=== PATIENT | female | born 1985 | race African-American/Black ===

== ENCOUNTER 2020-01-30 06:09 | Inpatient (IN) | payer OTHER, SELFPAY ==
[2020-01-30] VITALS (52 sets, daily range): BP systolic 99–149; BP diastolic 37–111; PULSE 77–162; RESP 16–18; TEMP 36.9–37.1; O2SAT 99–100
[2020-01-30 07:24] LABS: Basophils Absolute Auto 0.1 K/mm3 (0.0-0.1); Basophils Percent Auto 0.4 % (0.2-1.2); Eosinophils Absolute Auto 0.1 K/mm3 (0-0.3); Eosinophils Percent Auto 0.7 % (0-4.4); Hemoglobin 9.3 g/dL (12.0-15.0); Immature Granulocyte Absolute 0.27 K/mm3 (0.00-0.031); Immature Granulocyte Percent A 1.6 % (0-0.5); Lymphocytes Absolute Auto 2.87 K/mm3 (0.9-3.2); Mean Corpuscular Hemoglobin 22.7 pg (26-34); Mean Corpuscular Volume 75.6 fl (80-100); Monocytes Absolute Auto 1.3 K/mm3 (0.1-0.6); Monocytes Percent Auto 7.6 % (2.6-8.5); Neutrophils Absolute Auto 12.3 K/mm3 (1.3-6.7); Neutrophils Percent Auto 72.7 % (45.5-73.1); Nucleated Red Blood Cells Perc 0.2 % (0.0-0.2); Platelet Count Result 296 k/mm3 (150-375); Red Cell Distribution Width 22.2 % (11.5-14.5); White Blood Count 16.9 K/mm3 (4.5-10.0)
[2020-01-30] MEDS: LACTATED RINGERS 1,000 ML 125 ML IV CONT ×2 (07:39→08:33)
[2020-01-30] MEDS: AMPICILLIN 2 GM/NS 100 ML 2 GM/100 ML BAG IVPB (07:40)
--- NOTE | 2020-01-30 07:43 | LDADM ---
This patient, Jacqui Rankin, was admitted to Labor/Delivery/Recovery 105 on 01/30/20 at 06:09. Plans for labor, pain management and were discussed with patient. Patient/family oriented to hospital policies and general routines including ID bracelet, bed and alarms, visiting hours, pain management, procedures, bathroom and other care routines, personal items, smoking policy, room service/diet and guest tray routines, security routines, and visiting hours. Patient/Family are encouraged to report perceived risks to care and to ask questions if they do not understand what they are told or what they should do. See OBIX for further documentation.
--- NOTE | 2020-01-30 08:14 | WPDANESEPP ---
Anes - Eval Pre Procedure Procedure: Labor epidural Date/Time: 01/30/20 08:14 Surgeon: Malia Preop Diagnosis: pain during labor Pre Op Diagnosis: Induction of Labor Patient Data Age: 34 Gender: F Height: Weight: Last Vital Signs Pulse 106 H 01/30/20 08:02 BP 99/86 L 01/30/20 08:02 Allergies Allergy/AdvReac Type Severity Reaction Status Date / Time No Known Allergies Allergy Verified 01/30/20 06:49 Home Medications Medication Instructions Recorded Confirmed Type -ebmn fum-folic ac-om3 1 pkg PO DAILY 01/30/20 01/30/20 History [One Daily ] Laboratory Tests 01/30/20 01/30/20 07:17 07:17 WBC 16.9 K/mm3 H K/mm3 (4.5-10.0) RBC 4.10 M/mm3 L M/mm3 (4.2-5.4) Hgb 9.3 g/dL L g/dL (12.0-15.0) Hct 31.0 % L % (37.0-47.0) MCV 75.6 fl L fl (80-100) MCH 22.7 pg L pg (26-34) MCHC 30.0 g/dl L g/dl (32-36) RDW 22.2 % H % (11.5-14.5) Plt Count 296 k/mm3 k/mm3 (150-375) MPV 11.0 fl H fl (7.4-10.4) Immature Gran % (Auto) 1.6 % H % (0-0.5) Neut % (Auto) 72.7 % % (45.5-73.1) Lymph % (Auto) 17.0 % L % (18.3-44.2) [place] % (Auto) 7.6 % % (2.6-8.5) Eos % (Auto) 0.7 % % (0-4.4) Baso % (Auto) 0.4 % % (0.2-1.2) Lymph # (Auto) 2.87 K/mm3 K/mm3 (0.9-3.2) [place] # (Auto) 1.3 K/mm3 H K/mm3 (0.1-0.6) Eos # (Auto) 0.1 K/mm3 K/mm3 (0-0.3) Baso # (Auto) 0.1 K/mm3 K/mm3 (0.0-0.1) Abs Immat Gran (auto) 0.27 K/mm3 H K/mm3 (0.00-0.031) Absolute Neuts (auto) 12.3 K/mm3 H K/mm3 (1.3-6.7) Absolute Nucleated RBC 0.0 K/mm3 K/mm3 (0.0-0.012) Nucleated RBC % 0.2 % % (0.0-0.2) RPR Pending Patient hx anesthesia problems: none Family hx anesthesia problems: none PMFSH Social History Social History Smoking status: Never smoker Substance use: never Gender identity (if verbalized by the patient): Female Spiritual care concerns: No Exam Day of Procedure 01/30/20 08:14
[2020-01-30 09:52] LABS: Rapid Plasma Reagin Non-Reactive (NonReactive)
[2020-01-30] MEDS: AMPICILLIN 1 GM/NS 50 ML 1 GM/50 ML BAG IVPB (11:25)
--- NOTE | 2020-01-30 12:16 | PM.OBPRVD ---
OB - Delivery Note Procedure Delivery date: 01/30/20 Route of delivery: Episiotomy description: None Laceration description: None Specimen: No Estimated blood loss (mL): 200 Anesthesia type: Epidural Disposition: floor Narrative: Patient prepped and draped in the usual manner for this procedure. Maternal expulsive efforts readily delivered vertex. Nuchal cord was noted reduced. Rest of baby was delivered without difficulty. Cord was clamped and cut baby was passed off the. Placenta then delivered spontaneously. Cervix and vulva inspected for lacerations or tears. Uterus was hemostatic well contracted. At this point seems was considered terminated with immediate postop condition mother and baby both excellent. Baby Weeks of gestation at delivery: 39 Infant gender: Female Weight (pounds): 6 Weight (ounces): 0 presentation: vertex Placenta delivery description: Spontaneous score one minute: 9 score five minutes: 9
[2020-01-30] MEDS: IBUPROFEN 600 MG TABLET PO (15:12)
--- NOTE | 2020-01-30 15:54 | PC.NURSE ---
Patient transferred to post room # 283 per wheelchair. Support person present. Oriented to unit, room, information board, rooming in, admission packet and security measures. Patient verbalizes understanding.
[2020-01-31] MEDS: IBUPROFEN 600 MG TABLET PO ×2 (01:56→09:18)
[2020-01-31 05:33] LABS: Hematocrit 28.4 % (37.0-47.0); Hemoglobin 8.6 g/dL (12.0-15.0)
[2020-01-31 09:00] VITALS: BP 137/82; PULSE 78; RESP 14; TEMP 36.3; O2SAT 100
[2020-01-31] MEDS: DOCUSATE SODIUM 100 MG CAPSULE PO (09:18)
[2020-01-31] MEDS: POLYSACCHARIDE IRON COMPLEX 150 MG CAPSULE PO ×2 (09:19)
--- NOTE | 2020-01-31 09:44 | PM.OBPNVD ---
OB - PN: Subj Subjective Date/time seen: 01/31/20 09:44 Interval history: 34yo s/p on 01/29. Doing well this morning. Cramping is occasional, pain medication is helping. Lochia decreasing. Ambulating without issues. Bottle feeding. Patient comments: no complaints and pain well controlled baby status: bottle feeding well OB - PN: Obj Data Labs CBC & Chem 7: 01/31/20 04:44 Labs: Laboratory Results - last 24 hr 01/30/20 01/31/20 07:17 04:44 Hgb 8.6 L Hct 28.4 L RPR Non-reactive OB - PN A/P Assessment and Plan (1) (normal spontaneous vaginal delivery): Code(s): O80 - Encounter for full-term uncomplicated delivery Status: Acute Assessment and Plan: Routine care Pain management Ambulate DC home tomorrow 01/31 (2) Anemia affecting : Code(s): O99.019 - Anemia complicating , unspecified trimester Status: Acute Assessment and Plan: Iron BID Time Spent With Patient Time: Total time spent is greater than 50% in coordination of care (as documented) at patient's floor/unit and/or counseling patient: Review of Systems Review of Systems: All systems reviewed & are unremarkable except as noted in HPI and below Exam Const: General: comfortable, no acute distress, alert and awake Orientation/consciousness: patient oriented x3 Resp: Effort & Inspection: normal respiratory effort Cardio: Rate: regular rate GI: Other: soft, nontender, nondistended, fundus firm Psych: Appearance: grossly normal Mental Status: mental status grossly normal Affect: normal affect Attitude: cooperative Judgement: Good judgement present (Psych)
--- NOTE | 2020-01-31 10:32 | WPDANLDPN2 ---
Anes-Prog Note L&D Date/Time: 01/31/20 10:32 Comfortable throughout: labor and delivery Neuraxial method: epidural Epidural/Spinal procedure site: clean & non-tender Neuro status: Neuro function grossly intact. Cardiovascular status: normal Respiratory status: normal Airway patency: baseline Mental status: baseline Post-Op hydration status: normal Vital Signs: Last Vital Signs Temp 36.9 C 01/30/20 19:00 Pulse 77 01/30/20 19:00 Resp 16 01/30/20 19:00 BP 124/78 01/30/20 19:00 Pulse Ox 100 01/30/20 09:00 Post-procedural complaints: none Patient feedback: Patient satisfied with anesthetic care.
--- NOTE | 2020-01-31 14:50 | PM.OBDSVD ---
DS: Diagnosis Admitting Diagnosis Admitting Diagnosis: Encounter for full-term uncomplicated delivery Discharge Diagnosis (1) (normal spontaneous vaginal delivery): Code(s): O80 - Encounter for full-term uncomplicated delivery Status: Acute OB - DS: Summary OB Procedures : None OB Procedures Intrapartum: Spontaneous Vag Delivery OB Procedures: : None Peripartum Data Delivery Method: Natural Vaginal Laceration description: None complications: none Status at Discharge Functional status at discharge: independent ambulation Overall status at discharge: patient is progressing back to baseline Time Spent with Patient Time attestation: Total time spent providing and/or coordinating discharge services: Exam Const: General: comfortable, no acute distress, alert, awake and anxious Orientation/consciousness: patient oriented x3 Resp: Effort & Inspection: normal respiratory effort Cardio: Rate: regular rate GI: Inspection: non-distended GI Palp: Yes Soft to palpation and No Tenderness to palpation present (GI) Psych: Appearance: grossly normal Mental Status: mental status grossly normal Affect: normal affect Attitude: cooperative Thought content: Yes Normal thought content present Judgement: Good judgement present (Psych) DS: Data Data Completed and Pending Labs on day of discharge: Labs from last 24 hours 01/31/20 04:44 Hgb 8.6 L Hct 28.4 L Discharge Plan Discharge Attending physician on discharge: Topher Martin Discharging Clinician: Leonel Finley Patient Disposition: Home, Self-Care Activity: as tolerated Diet: regular Discharge Instructions: Education: Mom and Baby Guide Given to: Mother Follow-Up: Call your delivering provider's office for an appointment to be seen in: 3-4 Weeks Mom and baby should come to the [facility] for the follow-up appointment. Appointment Date/Time: February 02, 2020 at 8:00 am What to expect at your follow-up visit: Blood Pressure Check Physical Assessment Call [phone] if you are unable to keep your appointment time. BREAST CARE: 1. Wear a snug supportive bra. 2. For engorgement discomfort: Bottle Feeding: A. May apply ice packs PERINEAL CARE: 1. Until bleeding stops, use your dariel bottle after urinating 2. Change your pad frequently throughout the day 3. You may take sitz baths several times a day (fill your bathtub with warm water and soak for 20 minutes.) Do NOT bathe in the water 4. No tub baths until seen by your physician - You may shower ACTIVITY: 1. Rest as much as possible. 2. Do not exercise or lift anything heavier than your baby (such as laundry or other children.) 3. Avoid stairs or driving as much as possible. 4. Do not put anything into the vagina. No douching, tampons, or sexual activity until seen by physician. NOTIFY PHYSICIAN IF YOU HAVE ANY QUESTIONS OR IF ANY OF THE FOLLOWING SYMPTOMS OCCUR: 1. If your perineum becomes red, swollen, or more painful than what you have experienced in the hospital. 2. If your vaginal bleeding becomes foul smelling. 3. If your vaginal bleeding becomes more heavy than a period or if your bleeding changes from pink to bright red. However, you may pass an occasional walnut-sized clot once or twice for the first week . 4. If you experience a sharp, shooting pain in your calves. 5. If you discover a hard, reddened area on your breast or if you experience flu-like symptoms. DIET: 1. Eat regular, well-balanced meals. 2. Drink plenty of fluids daily. If , drink to thirst. Stand Alone Forms: General Discharge Information Follow-up/Referrals: Topher Martin MD [Physician] - Discharge Medications: New polysaccharide iron complex 150 mg iron Capsule 150 mg PO BIDWM Qty: 90 RF: 0 docusate sodium 100 mg Capsule 100 mg PO BID AK
[2020-01-31 21:25] VITALS: BP 128/79; PULSE 84; RESP 16; TEMP 36.7
[2020-02-01] MEDS: IBUPROFEN 600 MG TABLET PO ×2 (02:25→11:59)
[2020-02-01 07:45] VITALS: BP 127/85; PULSE 74; RESP 16; TEMP 36.9; O2SAT 100
[2020-02-01] MEDS: POLYSACCHARIDE IRON COMPLEX 150 MG CAPSULE PO (11:59)
[2020-02-01] MEDS: DOCUSATE SODIUM 100 MG CAPSULE PO (11:59)
[2020-02-04 11:24] VITALS: BP 131/77; PULSE 86; RESP 20; TEMP 36.9
== END 2020-02-01 12:33 | disposition home or self-care (01) | DRG 560 ==
LOC: ANHLDR 06:56 → ANHOB2 15:21
PROVIDERS: Admitting Provider Obstetrics & Gynecology; Visit Provider Obstetrics & Gynecology
DX: O99.824 Streptococcus B carrier state complicating childbirth (principal); Z37.0 Single live birth; Z3A.39 39 weeks gestation of pregnancy; O69.81X0 Labor and delivery complicated by cord around neck, without compression, not applicable or unspecified; O99.02 Anemia complicating childbirth; D64.9 Anemia, unspecified
CPT/HCPCS: 36415; 85014; 85018; 85025; 86592; 86850; 86900; 86901; A9270; J0290; J2590; J2795; J7120

== ENCOUNTER 2021-02-13 10:15 | Inpatient (IN) | payer OTHER, SELFPAY ==
[2021-02-13] VITALS (106 sets, daily range): BP systolic 90–153; BP diastolic 51–114; PULSE 73–176; TEMP 36.1–36.9; O2SAT 98–100; BMI 19.5
--- NOTE | ~2021-02-13 | US_ITS ---
EXAMINATION: US OB BPP wo non-stress DATE: 02/13/2021 12:57 CDT INDICATION: Vaginal spotting TECHNIQUE: Real-time transabdominal obstetric ultrasound. FINDINGS: No prior studies for comparison. There is a single living fetus in vertex presentation. The placenta is vertex without placenta previ a. cardiac activity and movement is noted with a heart rate of 145 beats per minute. Biophysical profile: breathin of 2 movement: 2 of 2 tone: 2 of 2 Amniotic flud pocket: 2 of 2 Total score: 6 of 8 IMPRESSION: 1. Single living intrauterine in vertex presentation. 2: Total biophysical profile score of 6/8. Reviewed, dictated and finalized at location B.
[2021-02-13] MEDS: MAGNESIUM SULF 4 GM/WATER100ML 4 GM/100 ML BAG IVPB (13:56)
[2021-02-13] MEDS: AMPICILLIN 2 GM/NS 100 ML 2 GM/100 ML BAG IVPB (13:57)
[2021-02-13] MEDS: LACTATED RINGERS 1,000 ML 75 ML (13:57)
[2021-02-13] MEDS: BETAMETHASONE SOD PHOS/ACETATE 30 MG/5 ML VIAL 12 MG IM (13:58)
--- NOTE | 2021-02-13 14:01 | PM.IMHP ---
H&P: HPI History of Present Illness Date/Time: 02/13/21 14:01 35-year-old 4 para 3003 female at 28 weeks gestation presents with irregular contractions today was evaluated found to be 1cm thick also with occasional deceleration for which she was sent for a biophysical profile which was 6/8 as expected. Upon return had notation of a gush of fluid and which was AmniSure positive for rupture of membranes. We have discussed the need for a transfer to tertiary care center for which we will arrange in the near future. She denies any history of trauma and or other inciting event other than the Irregular contractions this morning. Chief Complaint: contractions Review of Systems Review of Systems: All systems reviewed & are unremarkable except as noted in HPI and below PMFSH Social History Social History Smoking status: Never smoker Substance use: never Gender identity (if verbalized by the patient): Female Spiritual care concerns: No Meds Home Medications and Allergies Home Medications Medication Instructions Recorded Confirmed Type One Daily 1 pkg PO DAILY 01/30/20 01/30/20 History docusate sodium 100 mg PO BID PRN #60 cap 01/31/20 Rx ibuprofen 600 mg PO Q6H PRN #90 tablet 01/31/20 Rx polysaccharide iron complex 150 mg PO BIDWM #90 cap 01/31/20 Rx Allergies Allergy/AdvReac Type Severity Reaction Status Date / Time No Known Allergies Allergy Verified 01/30/20 06:49 Vital Signs Vital Signs - 24 hr 02/13/21 10:45 02/13/21 11:00 02/13/21 11:15 Pulse Rate 84 80 85 Blood Pressure 132/67 149/114 H 130/73 02/13/21 11:30 02/13/21 11:45 02/13/21 12:00 Pulse Rate 85 82 89 Blood Pressure 122/57 L 130/110 H 126/71 Exam Const: General: cooperative, healthy appearing and comfortable Resp: Effort & Inspection: normal respiratory effort Auscultation: clear to auscultation bilaterally Cardio: Rate: regular rate Rhythm: regular rhythm GI: Auscultation: normal bowel sounds : Bimanual exam- vagina & uterus: enlarged (26 cm) Manual OB Exam: dilated 1 cm and effaced 0% Amniotic Fluid: clear Assessment and Plan Assessment and plan (1) 28 weeks gestation of : Code(s): Z3A.28 - 28 weeks gestation of Status: Acute (2) Rupture of membranes with clear amniotic fluid: Status: Acute Additional Plan 1. Magnesium sulfate 2. Antibiotic prophylaxis 3. steroids in 4. Transfer [facility]
[2021-02-13] MEDS: MAGNESIUM SULF 20GM/WATER500ML 500 ML 50 MG IV CONT (14:30)
--- NOTE | 2021-02-13 15:41 | LDADM ---
This patient, Jacqui Rankin, was admitted to Labor/Delivery/Recovery 105 on 02/13/21 at 15:41. Plans for labor, pain management and were discussed with patient. Patient/family oriented to hospital policies and general routines including ID bracelet, bed and alarms, visiting hours, pain management, procedures, bathroom and other care routines, personal items, smoking policy, room service/diet and guest tray routines, security routines, and visiting hours. Patient/Family are encouraged to report perceived risks to care and to ask questions if they do not understand what they are told or what they should do. See OBIX for further documentation.
[2021-02-13 16:29] LABS: Basophils Absolute Auto 0.1 K/mm3 (0.0-0.1); Basophils Percent Auto 0.2 % (0.2-1.2); Eosinophils Percent Auto 0.1 % (0-4.4); Hematocrit 30.7 % (37.0-47.0); Hemoglobin 9.8 g/dL (12.0-15.0); Immature Granulocyte Absolute 0.18 K/mm3 (0.00-0.031); Immature Granulocyte Percent A 0.8 % (0-0.5); Lymphocytes Absolute Auto 0.92 K/mm3 (0.9-3.2); Lymphocytes Percent Auto 3.9 % (18.3-44.2); Mean Corpuscular HGB Conc 31.9 g/dl (32-36); Mean Corpuscular Hemoglobin 25.2 pg (26-34); Mean Corpuscular Volume 78.9 fl (80-100); Mean Platelet Volume 11.5 fl (7.4-10.4); Monocytes Absolute Auto 0.4 K/mm3 (0.1-0.6); Monocytes Percent Auto 1.6 % (2.6-8.5); Neutrophils Absolute Auto 21.9 K/mm3 (1.3-6.7); Neutrophils Percent Auto 93.4 % (45.5-73.1); Platelet Count Result 201 k/mm3 (150-375); Red Blood Count 3.89 M/mm3 (4.2-5.4); Red Cell Distribution Width 17.1 % (11.5-14.5); White Blood Count 23.5 K/mm3 (4.5-10.0)
--- NOTE | 2021-02-13 16:36 | WPDANESEPP ---
Anes - Eval Pre Procedure Procedure: labor epidural Date/Time: 02/13/21 16:36 Surgeon: rani Pre Op Diagnosis: PRROM, labor Patient Data Age: 35 Gender: F Height: Weight: Last Vital Signs Pulse 96 02/13/21 16:31 BP 131/74 02/13/21 16:31 Allergies Allergy/AdvReac Type Severity Reaction Status Date / Time No Known Allergies Allergy Verified 01/30/20 06:49 Home Medications Medication Instructions Recorded Confirmed Type One Daily 1 pkg PO DAILY 01/30/20 01/30/20 History docusate sodium 100 mg PO BID PRN #60 cap 01/31/20 Rx ibuprofen 600 mg PO Q6H PRN #90 tablet 01/31/20 Rx polysaccharide iron complex 150 mg PO BIDWM #90 cap 01/31/20 Rx Laboratory Tests 02/13/21 02/13/21 02/13/21 16:21 16:21 16:22 WBC 23.5 K/mm3 H K/mm3 (4.5-10.0) RBC 3.89 M/mm3 L M/mm3 (4.2-5.4) Hgb 9.8 g/dL L g/dL (12.0-15.0) Hct 30.7 % L % (37.0-47.0) MCV 78.9 fl L fl (80-100) MCH 25.2 pg L pg (26-34) MCHC 31.9 g/dl L g/dl (32-36) RDW 17.1 % H % (11.5-14.5) Plt Count 201 k/mm3 k/mm3 (150-375) MPV 11.5 fl H fl (7.4-10.4) Immature Gran % (Auto) 0.8 % H % (0-0.5) Neut % (Auto) 93.4 % H % (45.5-73.1) Lymph % (Auto) 3.9 % L % (18.3-44.2) [place] % (Auto) 1.6 % L % (2.6-8.5) Eos % (Auto) 0.1 % % (0-4.4) Baso % (Auto) 0.2 % % (0.2-1.2) Lymph # (Auto) 0.92 K/mm3 K/mm3 (0.9-3.2) [place] # (Auto) 0.4 K/mm3 K/mm3 (0.1-0.6) Eos # (Auto) 0.0 K/mm3 K/mm3 (0-0.3) Baso # (Auto) 0.1 K/mm3 K/mm3 (0.0-0.1) Abs Immat Gran (auto) 0.18 K/mm3 H K/mm3 (0.00-0.031) Absolute Neuts (auto) 21.9 K/mm3 H K/mm3 (1.3-6.7) Absolute Nucleated RBC 0.0 K/mm3 K/mm3 (0.0-0.012) Nucleated RBC % 0.0 % % (0.0-0.2) RPR Pending HIV 1&2 Ab/P24 Ag 4thGn Pending Patient hx anesthesia problems: none Family hx anesthesia problems: none PMFSH Social History Social History Smoking status: Never smoker Substance use: never Gender identity (if verbalized by the patient): Female Spiritual care concerns: No Exam Day of Procedure 02/13/21 16:36
[2021-02-13] MEDS: ERYTHROMYCIN LACTOBIONATE INJ 250 MG in SODIUM CHLORIDE 0.9% IV 100 ML 200 MG IVPB (16:59)
[2021-02-13 17:27] LABS: HIV 1/2 Ab P24 Ag Result Negative (Negative)
[2021-02-13] MEDS: AMPICILLIN 1 GM/NS 50 ML 1 GM/50 ML BAG IVPB (18:27)
[2021-02-16 07:17] LABS: Rapid Plasma Reagin Non-Reactive (NonReactive)
--- NOTE | 2021-02-16 07:41 | PM.TDS ---
Transfer Discharge Sum: Prov Provider Date of admission: 02/13/21 15:41 Primary care physician: UNKNOWN,DOCTOR Admitting clinician: Topher Martin MD Consults: 02/13/21 16:10 Consult to Anesthesiology Routine Reason for consultation: epidural Has provider been notified: Yes DS: Admitting Diagnosis Admitting Diagnosis Admitting Diagnosis: 28 week with PPROM/PTL. Transfer Discharge Sum: Med Medications Active and Home Medications: Home Medications One Daily 1 pkg PO DAILY 01/30/20 [History Confirmed 02/13/21] Transfer Discharge Sum: Hosp Hospital Course Hospital course: Jacqui Rankin is a 35 year old female admitted with PPROM. Initiated ab/steroids/magnesium sulfate. Also proceeded to 5cm and stopped, therefore transferred. Time Spent with Patient Time attestation: Total time spent providing and/or coordinating transfer services: DS: Data Data Completed and Pending Labs on day of discharge: Labs from last 24 hours 02/13/21 16:21 RPR Non-reactive
--- NOTE | 2021-02-19 06:14 | PM.OBDSVD ---
DS: Admitting Diagnosis Admitting Diagnosis Admitting Diagnosis: 28 week IUP PPROM OB - DS: Summary OB Procedures : Ultrasound OB Procedures Intrapartum: Other OB Procedures: : None Time Spent with Patient Time attestation: Total time spent providing and/or coordinating discharge services: Discharge Plan Discharge Consulting providers: Matty Headley Discharging Clinician: Topher Martin Patient Disposition: Acute Care Hospital Activity: other - see discharge instructions Diet: other - see discharge instructions Discharge Instructions: transfer to [facility] Discharge Medications: Continued One Daily 28 mg iron- 800 mcg Combo Pack 1 pkg PO DAILY RF: 0 Date of admission: 02/13/21 15:41 Primary Care Provider: UNKNOWN,DOCTOR Admitting Provider: Topher Martin Attending physician on admission: Topher Martin Condition: Stable
== END 2021-02-13 21:48 | disposition short-term general hospital (02) | DRG 566 ==
LOC: ANHOBPP 10:19 → ANHLDR 15:42
PROVIDERS: Admitting Provider Obstetrics & Gynecology; Visit Provider Obstetrics & Gynecology
DX: O42.913 Preterm premature rupture of membranes, unspecified as to length of time between rupture and onset of labor, third trimester (principal); Z3A.28 28 weeks gestation of pregnancy; O36.8330 Maternal care for abnormalities of the fetal heart rate or rhythm, third trimester, not applicable or unspecified
CPT/HCPCS: 36415; 76819; 84112; 85025; 86592; 86703; 86850; 86900; 86901; G0432; J0290; J0702; J2795; J3475; J7120

== ENCOUNTER 2021-11-22 15:35 | Observation (INO) | payer OTHER, SELFPAY ==
[2021-11-22 15:30] VITALS: TEMP 37.9; BMI 16.2
[2021-11-22 15:45] VITALS: BP 130/61; PULSE 80
[2021-11-22 16:00] VITALS: BP 127/75; PULSE 81
[2021-11-22 16:15] VITALS: BP 124/76; PULSE 91
--- NOTE | 2021-11-22 16:46 | OBADM ---
This patient, Jacqui Rankin, admitted to the OB room 117 for observation as PUI with fever and contractions. Patient/family oriented to hospital policies and general routines including ID bracelet, bed and alarms, visiting hours, pain management, procedures, bathroom and other care routines, personal items, smoking policy, room service/diet, and visiting hours. Patient/Family are encouraged to report perceived risks to care and to ask questions if they do not understand what they are told or what they should do.
[2021-11-22 17:00] VITALS: TEMP 37.6
[2021-11-22] MEDS: LACTATED RINGERS 1,000 ML 999 ML IV CONT (17:00)
[2021-11-22 17:07] VITALS: TEMP 37.9
[2021-11-22 17:30] LABS: EDCOVIDSCREEN Positive (Negative)
[2021-11-22 17:38] LABS: Basophils Percent Auto 0.4 % (0.2-1.2); Hematocrit 33.8 % (37.0-47.0); Hemoglobin 10.9 g/dL (12.0-15.0); Immature Granulocyte Absolute 0.02 K/mm3 (0.00-0.031); Immature Granulocyte Percent A 0.3 % (0-0.5); Lymphocytes Absolute Auto 1.28 K/mm3 (0.9-3.2); Lymphocytes Percent Auto 16.3 % (18.3-44.2); Mean Corpuscular HGB Conc 32.2 g/dl (32-36); Mean Corpuscular Hemoglobin 25.5 pg (26-34); Mean Platelet Volume 11.8 fl (7.4-10.4); Monocytes Absolute Auto 0.7 K/mm3 (0.1-0.6); Monocytes Percent Auto 8.5 % (2.6-8.5); Neutrophils Absolute Auto 5.9 K/mm3 (1.3-6.7); Neutrophils Percent Auto 74.5 % (45.5-73.1); Platelet Count Result 173 k/mm3 (150-375); Red Blood Count 4.28 M/mm3 (4.2-5.4); Red Cell Distribution Width 18.5 % (11.5-14.5); White Blood Count 7.9 K/mm3 (4.5-10.0)
[2021-11-22 17:43] LABS: Alanine Aminotransferase 12 U/L (4-35); Albumin Level 3.8 g/dL (3.5-5.1); Alkaline Phosphatase 97 U/L (38-126); Anion Gap 11 mmol/L (8-16); Aspartate Amino Transferase 19 U/L (14-36); Bilirubin,Total 0.3 mg/dL (0.2-1.3); Blood Urea Nitrogen 8 mg/dL (7-17); Calcium 8.7 mg/dL (8.4-10.2); Carbon Dioxide 16 mmol/L (22-30); Chloride 103 mmol/L (98-107); Estimated CRCL calculation 83 ml/min; Estimated Glomerular Filt Rate > 60; Glucose 129 mg/dL (65-110); Potassium 3.6 mmol/L (3.4-5.0); Sodium 130 mmol/L (137-145)
[2021-11-22 17:44] LABS: Add Urine Microscopic? YES; Appearance Urine Clear (Clear); Bacteria Urine Trace /hpf; Bilirubin Urine Negative (Negative); Blood Urine Negative (Negative); Color Urine Yellow (Yellow); Glucose Urine UA Negative (Negative); Ketones Urine 2+ mg/dL (Negative); Leukocyte Esterase Ur Negative LEU/UL (Negative); Mucus Urine Heavy /lpf; Nitrate Urine Positive (Negative); Protein Urine 1+ mg/dL (Negative); RBC Urine 0-2 /hpf (0-2); Specific Grav Ur 1.024 (1.001-1.035); Squamous Epithelial Cell Urine Occasional /hpf (Few); Urobilinogen Urine Negative mg/dL (<2.0); WBC Urine 0-3 /hpf
--- NOTE | 2021-11-23 15:15 | PM.OBTRLD ---
OB - Triage/Final Diagnosis Visit Information Comments/Additional reasons for admission: I have assessed the risk for this patient, Jacqui Rankin, and determined that she would benefit from observation care. Evaluation Laboratory results: Laboratory Tests 11/22/21 11/22/21 11/22/21 17:13 17:13 17:13 WBC 7.9 RBC 4.28 Hgb 10.9 L Hct 33.8 L MCV 79.0 L MCH 25.5 L MCHC 32.2 RDW 18.5 H Plt Count 173 MPV 11.8 H Immature Gran % (Auto) 0.3 Neut % (Auto) 74.5 H Lymph % (Auto) 16.3 L [place] % (Auto) 8.5 Eos % (Auto) 0.0 Baso % (Auto) 0.4 Lymph # (Auto) 1.28 [place] # (Auto) 0.7 H Eos # (Auto) 0.0 Baso # (Auto) 0.0 Abs Immat Gran (auto) 0.02 Absolute Neuts (auto) 5.9 Absolute Nucleated RBC 0.0 Nucleated RBC % 0.0 Sodium 130 L Potassium 3.6 Chloride 103 Carbon Dioxide 16 L Anion Gap 11 BUN 8 Creatinine 0.60 L Estim Creat Clear Calc 83 Estimated GFR > 60 Glucose 129 H Calcium 8.7 Total Bilirubin 0.3 AST 19 ALT 12 Alkaline Phosphatase 97 Total Protein 7.0 Albumin 3.8 Urine Color Yellow Urine Appearance Clear Urine pH 5.0 Ur Specific [place] 1.024 Urine Protein 1+ H Urine Glucose (UA) Negative Urine Ketones 2+ H Ur Blood (Man) Negative Urine Nitrate Positive H Urine Bilirubin Negative Urine Urobilinogen Negative Leukocyte Esterase Rfl Negative Urine RBC 0-2 Urine WBC 0-3 Ur Squamous Epith Cells Occasional Urine Bacteria Trace Urine Mucus Heavy H SARS-CoV-2 IgG/IgM Ag?Rapid 11/22/21 17:13 WBC RBC Hgb Hct MCV MCH MCHC RDW Plt Count MPV Immature Gran % (Auto) Neut % (Auto) Lymph % (Auto) [place] % (Auto) Eos % (Auto) Baso % (Auto) Lymph # (Auto) [place] # (Auto) Eos # (Auto) Baso # (Auto) Abs Immat Gran (auto) Absolute Neuts (auto) Absolute Nucleated RBC Nucleated RBC % Sodium Potassium Chloride Carbon Dioxide Anion Gap BUN Creatinine Estim Creat Clear Calc Estimated GFR Glucose Calcium Total Bilirubin AST ALT Alkaline Phosphatase Total Protein Albumin Urine Color Urine Appearance Urine pH Ur Specific [place] Urine Protein Urine Glucose (UA) Urine Ketones Ur Blood (Man) Urine Nitrate Urine Bilirubin Urine Urobilinogen Leukocyte Esterase Rfl Urine RBC Urine WBC Ur Squamous Epith Cells Urine Bacteria Urine Mucus SARS-CoV-2 IgG/IgM Ag?Rapid Positive Final Diagnosis (1) Decreased movement: Code(s): O36.8190 - Decreased movements, unspecified trimester, not applicable or unspecified Status: Acute
== END 2021-11-22 19:04 | disposition home or self-care (01) ==
LOC: ANHOBPP 15:36
PROVIDERS: Admitting Provider Obstetrics & Gynecology; Visit Provider Obstetrics & Gynecology
DX: O36.8192 Decreased fetal movements, unspecified trimester, fetus 2 (principal); O98.512 Other viral diseases complicating pregnancy, second trimester; U07.1 COVID-19; Z3A.21 21 weeks gestation of pregnancy
CPT/HCPCS: 36415; 80053; 81001; 85025; 87426; 96374; C9803; G0378; G0379; J0131; J7120

== ENCOUNTER 2022-03-11 13:03 | Outpatient (CLI) | payer OTHER, SELFPAY ==
--- NOTE | ~2022-03-11 | US_ITS ---
EXAMINATION: US OB follow up DATE: 03/11/2022 13:54 INDICATION: Encounter for supervision of normal during third trimester . TECHNIQUE: Real-time ultrasound of the pelvis was performed. The interpreting radiologist was not pre sent for the study. COMPARISON: 12/28/2021 FINDINGS: There is a single living fetus in vertex presentation. The placenta is fundal. heart rate is 1 54 beats per minute (bpm). The amniotic fluid index is 19.7 cm, which is normal (5th%-95%: 7.7-24.9 cm at 36 weeks estimated gestational age). The following biometric data were obtained: BPD: 8.6 cm -> 34 weeks 4 days Head circumference: 32.2 cm -> 36 weeks 3 days Abdominal circumference: 29.6 cm -> 33 weeks 4 days Femur length: 6.8 cm -> 35 weeks 1 days These measurements are concordant. Head circumference to abdominal circumference ratio: 1.09 (normal range 0.93-1.11). Estimated weight: 2423 g (+/-) 363 g or 5 lbs. 5 oz. (+/-) 13 oz. IMPRESSION: 1. Single living fetus in vertex presentation with heart rate of 154 bpm. 2. Normal amniotic fluid index of 19.7 cm. 3. Estimated weight is 7th percentile by Hadlock criteria when 04/03/2022 is used as the estimat ed date of delivery (CIERRA). Please correlate with clinical information or earlier ultrasounds for most accurate CIERRA. Reviewed, dictated and finalized at location A. IMPRESSION: 1. Single living fetus in vertex presentation with heart rate of 154 bpm. 2. Normal amniotic fluid index of 19.7 cm. 3. Estimated weight is 7th percentile by Hadlock criteria when 04/03/2022 is used as the estimated date of delivery (CIERRA). Please correlate with clinical information or earlier ultrasounds for most accurate CIERRA.
== END 2022-03-11 13:04 | disposition home or self-care (01) ==
LOC: ANHIMG 13:09
PROVIDERS: Visit Provider Obstetrics & Gynecology
DX: Z34.90 Encounter for supervision of normal pregnancy, unspecified, unspecified trimester (principal)
CPT/HCPCS: 76816

== ENCOUNTER 2022-03-15 18:02 | Outpatient (RCR) | payer OTHER, SELFPAY ==
[2022-03-12 11:28] VITALS: BP 130/79; PULSE 95
--- NOTE | 2022-03-12 12:00 | PC.NURSE ---
Dr Martin at patient bedside, tracing reviewed. If no further decels ok for patient to dc home. Patient to have follow-up NST on Tuesday and IOL on Tue at 0600.
--- NOTE | 2022-03-12 12:32 | PC.NURSE ---
FHT's from [id number], baseline 130 with accels 145. No further decels noted.
--- NOTE | ~2022-03-15 | US_ITS ---
EXAMINATION: US OB limited w BPP DATE: 03/12/2022 11:57 INDICATION: Small for gestational age. Assess amniotic fluid index during third trimester . TECHNIQUE: Real-time pelvic ultrasound was performed. The interpreting radiologist was not present fo r the study. COMPARISON: None. FINDINGS: There is a single living fetus in vertex presentation. The placenta is right posterior. heart rate is 138 beats per minute (bpm). Normal amniotic fluid index of 17.1 cm (5th%-95%: 7.7-24.9 cm at 36 weeks estimated gestational age). Biophysical profile performed by the technologist: breathing (30 sec sustained breathing in 30 minutes): 2 out of 2 movement (3 gross body movements in 30 minutes): 2 out of 2 tone (one episode of zbosrrj-cfxkovrsj-syvnmns limb movement): 2 out of 2 Amniotic fluid pocket (2 cm): 2 out of 2 Total score: 8 out of 8 IMPRESSION: 1. Single living fetus in vertex presentation with heart rate of 138 bpm. 2. Biophysical profile 8 out of 8. Reviewed, dictated and finalized at location A.
[2022-03-15 18:45] VITALS: BP 128/73; PULSE 94
== END 2022-03-29 08:10 | disposition home or self-care (01) ==
LOC: ANHOBOP 18:02
PROVIDERS: Visit Provider Obstetrics & Gynecology
DX: O36.5930 Maternal care for other known or suspected poor fetal growth, third trimester, not applicable or unspecified (principal); Z3A.36 36 weeks gestation of pregnancy; Z3A.37 37 weeks gestation of pregnancy
CPT/HCPCS: 59025; 76815; 76819

== ENCOUNTER 2022-03-17 06:09 | Inpatient (IN) | payer OTHER, SELFPAY ==
[2022-03-17] VITALS (78 sets, daily range): BP systolic 103–199; BP diastolic 60–184; PULSE 76–215; RESP 16; TEMP 36.3–36.7; O2SAT 99–100; BMI 20.3
--- NOTE | 2022-03-17 06:56 | WPDOBADMIT ---
Obstetrics - Admit Note Admission Note: record reviewed. No pertinent additions to the history and/or any subsequent changes in the physical findings that are not consistent with the expected course of the were found. Additions to the history and/or subsequent changes in the physical findings follow. 36-year-old female presents for induction of labor due to IUGR. Last ultrasound showed the size to be in the less than 10th percentile at 7th percentile. She has had testing which has been reassuring and presents today at37+ weeks for induction. Will plan for amniotomy/Pitocin augmentation/expected vaginal delivery. Pain medications per patient request.
--- NOTE | 2022-03-17 06:58 | WPDHPUPDATE1 ---
History and Physical Update Update Date/Time: 03/17/22 06:58 History and Physical has been reviewed, including an updated exam of the patient. There are NO changes in the patient's condition. Risks, benefits, and alternatives have been discussed and questions answered. Patient agrees to proceed with procedure.
--- NOTE | 2022-03-17 07:10 | LDADM ---
This patient, Jacqui Rankin, was admitted to Labor/Delivery/Recovery 108 on 03/17/22 at 06:09. Plans for labor, pain management and were discussed with patient. Patient/family oriented to hospital policies and general routines including ID bracelet, bed and alarms, visiting hours, pain management, procedures, bathroom and other care routines, personal items, smoking policy, room service/diet and guest tray routines, infant security routines, and visiting hours. Patient/Family are encouraged to report perceived risks to care and to ask questions if they do not understand what they are told or what they should do. See OBIX for further documentation.
[2022-03-17 07:30] LABS: Basophils Percent Auto 0.3 % (0.2-1.2); Eosinophils Absolute Auto 0.1 K/mm3 (0-0.3); Hematocrit 31.4 % (37.0-47.0); Hemoglobin 9.5 g/dL (12.0-15.0); Immature Granulocyte Absolute 0.09 K/mm3 (0.00-0.031); Immature Granulocyte Percent A 0.7 % (0-0.5); Lymphocytes Absolute Auto 1.75 K/mm3 (0.9-3.2); Lymphocytes Percent Auto 13.1 % (18.3-44.2); Mean Corpuscular HGB Conc 30.3 g/dl (32-36); Mean Corpuscular Hemoglobin 24.2 pg (26-34); Mean Corpuscular Volume 79.9 fl (80-100); Mean Platelet Volume 12.2 fl (7.4-10.4); Monocytes Percent Auto 7.1 % (2.6-8.5); Neutrophils Absolute Auto 10.4 K/mm3 (1.3-6.7); Neutrophils Percent Auto 77.8 % (45.5-73.1); Platelet Count Result 205 k/mm3 (150-375); Red Blood Count 3.93 M/mm3 (4.2-5.4); Red Cell Distribution Width 19.5 % (11.5-14.5); White Blood Count 13.4 K/mm3 (4.5-10.0)
[2022-03-17] MEDS: LACTATED RINGERS 1,000 ML 125 ML IV CONT (07:45)
[2022-03-17] MEDS: AMPICILLIN 2 GM/NS 100 ML 2 GM/100 ML BAG IVPB (07:47)
[2022-03-17] MEDS: OXYTOCIN 30 UNITS/NS 500 ML 30 UNITS/500 ML BAG IV CONT (07:47)
[2022-03-17 08:34] LABS: Rapid Plasma Reagin Non-Reactive (NonReactive)
[2022-03-17 08:44] LABS: Hepatitis B Surface Antigen Negative (Negative)
--- NOTE | 2022-03-17 08:45 | WPDANESEPP ---
Anes - Eval Pre Procedure Procedure: labor epidural Date/Time: 03/17/22 08:45 Preop Diagnosis: pain during labor Pre Op Diagnosis: IOL Patient Data Age: 36 Gender: F Height: 1.7 m Weight: 59 kg Last Vital Signs Temp 36.3 C L 03/17/22 07:30 Pulse 81 03/17/22 08:30 BP 125/76 03/17/22 08:30 Allergies Allergy/AdvReac Type Severity Reaction Status Date / Time No Known Allergies Allergy Verified 03/15/22 15:42 Home Medications Medication Instructions Recorded Confirmed Type aspirin 81 mg chewable tablet 81 mg PO DAILY 03/02/22 03/15/22 History Laboratory Tests 03/17/22 03/17/22 03/17/22 07:24 07:25 07:25 WBC 13.4 K/mm3 H K/mm3 (4.5-10.0) RBC 3.93 M/mm3 L M/mm3 (4.2-5.4) Hgb 9.5 g/dL L g/dL (12.0-15.0) Hct 31.4 % L % (37.0-47.0) MCV 79.9 fl L fl (80-100) MCH 24.2 pg L pg (26-34) MCHC 30.3 g/dl L g/dl (32-36) RDW 19.5 % H % (11.5-14.5) Plt Count 205 k/mm3 k/mm3 (150-375) MPV 12.2 fl H fl (7.4-10.4) Immature Gran % (Auto) 0.7 % H % (0-0.5) Neut % (Auto) 77.8 % H % (45.5-73.1) Lymph % (Auto) 13.1 % L % (18.3-44.2) Porter % (Auto) 7.1 % % (2.6-8.5) Eos % (Auto) 1.0 % % (0-4.4) Baso % (Auto) 0.3 % % (0.2-1.2) Lymph # (Auto) 1.75 K/mm3 K/mm3 (0.9-3.2) Porter # (Auto) 1.0 K/mm3 H K/mm3 (0.1-0.6) Eos # (Auto) 0.1 K/mm3 K/mm3 (0-0.3) Baso # (Auto) 0.0 K/mm3 K/mm3 (0.0-0.1) Abs Immat Gran (auto) 0.09 K/mm3 H K/mm3 (0.00-0.031) Absolute Neuts (auto) 10.4 K/mm3 H K/mm3 (1.3-6.7) Absolute Nucleated RBC 0.0 K/mm3 K/mm3 (0.0-0.012) Nucleated RBC % 0.0 % % (0.0-0.2) RPR Non-reactive (NonReactive) Hep Bs Antigen Rubella IgG Antibody Blood Type O Positive Antibody Screen Negative 03/17/22 07:25 WBC RBC Hgb Hct MCV MCH MCHC RDW Plt Count MPV Immature Gran % (Auto) Neut % (Auto) Lymph % (Auto) Porter % (Auto) Eos % (Auto) Baso % (Auto) Lymph # (Auto) Porter # (Auto) Eos # (Auto) Baso # (Auto) Abs Immat Gran (auto) Absolute Neuts (auto) Absolute Nucleated RBC Nucleated RBC % RPR Hep Bs Antigen Negative (Negative) Rubella IgG Antibody 18.0 IU/ML IU/ML (10 - ) Blood Type Antibody Screen Patient hx anesthesia problems: none Family hx anesthesia problems: none Results Review: All pre-operative results and documents have been reviewed as part of the pre-operative evaluation. [facility] Past Medical History Medical History (Updated 03/02/22 @ 17:47 by ROMINA Babin) Depression Vaginal discharge Family History Family History (Updated 03/16/22 @ 16:08 by Dale Mejia RN) Other No pertinent family history Social History Social History Smoking status: Never smoker Second hand tobacco smoke exposure: Yes Alcohol intake: never Substance use: never Substance use type: marijuana Last use: 11/23/2021 Additional living arrangements comments: boyfriend Additional occupation/education comments: [employer] Gender identity (if verbalized by the patient): Female Sexual Orientation (if Verbalized by the Patient): Straight or Heterosexual Spiritual care concerns: No Exam Day of Procedure 03/17/22 08:45
--- NOTE | 2022-03-17 11:01 | PM.OBPRVD ---
OB - Delivery Note Procedure Events: Intrauterine Growth Restriction (IUGR) Induction method: AROM Delivery augmentation: Pitocin Route of delivery: Episiotomy description: None Laceration Description: Vaginal Delivery repair: chromic Specimen: Yes Quantitative Blood Loss (ml): 350 Anesthesia type: Epidural Disposition: Floor Narrative: patient prepped and draped in usual manner for this procedure. Maternal expulsive efforts readily delivered vertex with the rest of baby delivered without difficulty. Cord was clamped and cut and placenta delivered spontaneously. Uterus was well contracted. Cervix vagina vulva were inspected with small laceration noted the vaginal area which was rendered hemostatic using a [id number] 2-0 chromic suture. Immediate postop condition of mother and baby were both excellent. Baby Weeks of gestation at delivery: 37 Infant gender: Male Weight (pounds): 5 Weight (ounces): 4 Placenta delivery description: Spontaneous Cord Vessel Description: 3 Vessels score one minute: 8 score five minutes: 9 AMG Delivery Billing Delivery Delivery: Delivery Charge
[2022-03-17] MEDS: OXYTOCIN 30 UNITS/NS 500 ML 30 UNITS/500 ML BAG 125 UNITS IV CONT (11:25)
[2022-03-17] MEDS: IBUPROFEN 600 MG TABLET PO (12:28)
[2022-03-17] MEDS: WITCH HAZEL 40 PADS 1 PAD TOPICAL (14:14)
[2022-03-17] MEDS: BENZOCAINE 20% AER SPR (*SP) 56 GM CAN 1 SPRAY TOPICAL (14:14)
--- NOTE | 2022-03-17 14:35 | PC.NURSE ---
Patient transferred to post room #287 per wheelchair from labor and delivery. Support person present. Oriented to unit, room, information board, rooming in, admission packet and security measures. Patient verbalizes understanding.
[2022-03-17] MEDS: ACETAMINOPHEN 325 MG TABLET 650 MG PO (16:03)
[2022-03-18] MEDS: IBUPROFEN 600 MG TABLET PO ×3 (00:49→21:39)
[2022-03-18 05:45] LABS: Hematocrit 27.4 % (37.0-47.0); Hemoglobin 7.9 g/dL (12.0-15.0)
[2022-03-18 08:10] VITALS: BP 126/81; PULSE 87; RESP 18; TEMP 37.6; O2SAT 100
[2022-03-18 09:15] VITALS: PULSE 87; RESP 18; O2SAT 100
[2022-03-18] MEDS: MULTIVIT/MIN/PREN/FOL AC/IRON TABLET 1 TAB PO (09:42)
[2022-03-18] MEDS: DOCUSATE SODIUM 100 MG CAPSULE PO ×2 (09:43→20:23)
[2022-03-18] MEDS: POLYSACCHARIDE IRON COMPLEX 150 MG CAPSULE PO ×2 (09:43→20:23)
--- NOTE | 2022-03-18 10:39 | PM.OBPNVD ---
OB - PN: Subj Subjective Date/time seen: 03/18/22 10:39 36-year-old female 1 day status post vaginal delivery. No complaints or issues at this time. OB - PN: Obj Data Labs CBC & Chem 7: 03/18/22 04:32 Labs: Laboratory Results - last 24 hr 03/18/22 04:32 Hgb 7.9 L Hct 27.4 L OB - PN A/P Plan day: 1 Plan: routine care Time Spent With Patient Time: Total time spent is greater than 50% in coordination of care (as documented) at patient's floor/unit and/or counseling patient:
--- NOTE | 2022-03-18 12:46 | WPDANLDPN2 ---
Anes-Prog Note L&D Date/Time: 03/18/22 12:46 Comfortable throughout: labor and delivery Neuraxial method: epidural Epidural/Spinal procedure site: clean & non-tender Neuro status: Neuro function grossly intact. Cardiovascular status: normal Respiratory status: normal Airway patency: baseline Mental status: baseline Post-Op hydration status: normal Vital Signs: Last Vital Signs Temp 37.6 C 03/18/22 08:10 Pulse 87 03/18/22 08:10 Resp 18 03/18/22 08:10 BP 126/81 03/18/22 08:10 Pulse Ox 100 03/18/22 08:10 Pain score (VAS): 0 I/O: Intake & Output 03/17/22 03/18/22 03/18/22 23:59 07:59 15:59 Intake Total 1000 Balance 1000 Post-procedural complaints: none Patient feedback: Patient satisfied with anesthetic care.
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
--- NOTE | 2022-03-18 16:46 | PM.OBDSVD ---
DS: Admitting Diagnosis Discharge Date [id number] Admitting Diagnosis OB - DS: Summary OB Procedures : None OB Procedures Intrapartum: Spontaneous Vag Delivery OB Procedures: : None Time Spent with Patient Time attestation: Total time spent providing and/or coordinating discharge services: DS: Data Data Completed and Pending Pending studies at discharge: Pending at discharge 03/17/22 10:55 Surgical [PTH] Routine Labs on day of discharge: Labs from last 24 hours 03/18/22 04:32 Hgb 7.9 L Hct 27.4 L Discharge Plan Discharge Discharging Clinician: Topher Martin Patient Disposition: Home, Self-Care Activity: as tolerated Diet: as tolerated Patient Instructions: Antibiotic Form Stand Alone Forms: General Discharge Information Follow-up/Referrals: Topher Martin MD [Physician] - 2 Weeks Discharge Medications: New ibuprofen 600 mg Tablet 600 mg PO Q6H PRN (Reason: Cramping) Qty: 30 RF: 0 Discontinued aspirin 81 mg tablet,chewable 81 mg PO DAILY RF: 0 Date of admission: 03/17/22 06:09 Primary Care Provider: UNKNOWN,DOCTOR Admitting Provider: Topher Martin Attending physician on admission: Topher Martin Condition: Stable
[2022-03-18 20:26] VITALS: BP 116/73; PULSE 80; RESP 14; TEMP 36.9; O2SAT 98
[2022-03-19 07:55] VITALS: BP 104/68; PULSE 74; RESP 14; TEMP 36.7; O2SAT 100
[2022-03-19] MEDS: IBUPROFEN 600 MG TABLET PO (08:33)
[2022-03-19] MEDS: POLYSACCHARIDE IRON COMPLEX 150 MG CAPSULE PO (08:33)
--- NOTE | 2022-03-19 09:00 | PC.NURSE ---
Patient instructed on viewing the discharge video Mother & Baby Care, The First Two Weeks . Patient was given the opportunity and encouraged to ask questions. Patient verbalized understanding of information shared and has been given the mother/baby guide for home reference.
== END 2022-03-19 14:00 | disposition home or self-care (01) | DRG 560 ==
LOC: ANHLDR 06:14 → ANHOB2 15:15
PROVIDERS: Admitting Provider Obstetrics & Gynecology; Visit Provider Obstetrics & Gynecology
DX: O36.5930 Maternal care for other known or suspected poor fetal growth, third trimester, not applicable or unspecified (principal); Z37.0 Single live birth; Z3A.37 37 weeks gestation of pregnancy; O99.824 Streptococcus B carrier state complicating childbirth; O62.3 Precipitate labor; O71.4 Obstetric high vaginal laceration alone
CPT/HCPCS: 36415; 85014; 85018; 85025; 86592; 86762; 86850; 86900; 86901; 87340; 88307; A9270; J0290; J2590; J2795; J7120